=== PATIENT | female | born 1975 | race Caucasian/White ===

== ENCOUNTER 2018-07-25 02:10 | Day surgery (SDC) | payer OTHER ==
--- OUTSIDE RECORDS SUMMARY | 2018-07-25 02:21 | XMS REPORT | Continuity of Care Document ---
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 Payers Type Date Identification Numbers Payment Provider Subscriber Policy Number: [id number] [employer] Danika Domínguez PayID: [id number] [address] [place] [address] Advance Directives Description No Information Available Problems Description No Information Family History Description No Information Available Social History Type Date Description Comments Sex Unknown Allergies, Adverse Reactions, Alerts Description No Information Medications Description No Information Immunizations Description No Information Available Vital Signs Description No Information Available Results Description No Information Available Procedures Description No Information Available Encounters Description No Information Available Plan of Treatment Future Appointment(s):08/25/2018 11:30 am - Mohini Feng MD at [facility] Fwclrgwite34/18/2019 - Mohini Feng, MDR80.9 Proteinuria, [id number] Chronic kidney disease, unspecifiedNew Xrays:CT Abd/Pel W/O [id number], Ordered: US Renal Complete, Ordered: 07/01/18D68.62 Lupus anticoagulant syndromeNew Labs:Rheumatoid Factor, Ordered: 07/01/18Erythrocyte Sed Rate, Ordered: 07/01/18
[2018-07-25] MEDS ORDERED: NS 0.9% 1000 ML** 1,000 ML IV ONE (02:23)
[2018-07-25] MEDS ORDERED: fentaNYL* 50 MCG/ML 2 ML VIAL (100 MCG VIAL) IV SLOW PU ONE (02:24)
[2018-07-25] MEDS ORDERED: Metoclopramide IV* 5 MG/ML 2 ML VIAL IV SLOW PU ONE (02:24)
--- NOTE | 2018-07-25 02:30 | ED ---
Abdominal Pain/Female - HPI Summary HPI Summary: This patient is a 42 year old F presenting to [facility] with a chief complaint of constant RUQ abd pain since 23:00. The patient rates the pain 10/10 in severity. Symptoms aggravated by nothing. Symptoms alleviated by nothing. Patient denies vomiting. Patient notes that she took Tylenol at 21:30 but it did not alleviate her symptoms. Pt has hx of nephrostomy tube surgical placement and removal. - History of Current Complaint Chief Complaint: EDAbdPain Stated Complaint: ABD PAIN Time Seen by Provider: 07/25/18 02:20 Hx Obtained From: Patient Onset/Duration: Sudden Onset, Lasting Hours, Still Present Timing: Constant Severity Initially: Severe Severity Currently: Severe Pain Intensity: 10 Pain Scale Used: 0-10 Numeric Location: Discrete At: RUQ Radiates: No Aggravating Factor(s): Nothing Alleviating Factor(s): Nothing Associated Signs and Symptoms: Negative: Vomiting Allergies/Adverse Reactions: Allergies Allergy/AdvReac Type Severity Reaction Status Date / Time erythromycin base Allergy Unknown Verified 07/25/18 02:25 Reaction Details Home Medications: Home Medications Albuterol inh POWDER (NF) [Proair Respiclick] 1 puff INH Q4H PRN 07/25/18 [ History Confirmed 07/25/18] Hydrocodone/Acetaminophen [Hydrocodone-Acetamin 5-300 mg] 1 tab PO Q6H PRN 07/25 [History Confirmed 07/25/18] PMH/Surg Hx/FS Hx/Imm Hx Endocrine/Hematology History: Denies: Hx Diabetes Opthamlomology History: Denies: Hx Legally Blind EENT History: Denies: Hx Deafness - Surgical History Surgery Procedure, Year, and Place: right nephrostomy tube, removed Infectious Disease History: No Infectious Disease History: Denies: Traveled Outside the [place] in Last 30 Days - Family History Known Family History: Negative: Diabetes - Social History Lives: With Family Hx Tobacco Use: No Review of Systems Negative: Fever Negative: Epistaxis Negative: Chest Pain Negative: Cough Positive: Abdominal Pain - RUQ. Negative: Vomiting All Other Systems Reviewed And Are Negative: Yes Physical Exam - Summary Physical Exam Summary: VITAL SIGNS: Reviewed. GENERAL: Patient is a well-developed and nourished FEMALE who is lying comfortable in the stretcher. Patient is not in any acute respiratory distress. HEAD AND FACE: No signs of trauma. No ecchymosis, hematomas or skull depressions. No sinus tenderness. EYES: PERRLA, EOMI x 2, No injected conjunctiva, no nystagmus. EARS: Hearing grossly intact. Ear canals and tympanic membranes are within normal limits. MOUTH: Oropharynx within normal limits. NECK: Supple, trachea is midline, no adenopathy, no JVD, no carotid bruit, no c- spine tenderness, neck with full ROM. CHEST: Symmetric, no tenderness at palpation LUNGS: Clear to auscultation bilaterally. No wheezing or crackles. CVS: Regular rate and rhythm, S1 and S2 present, no murmurs or gallops appreciated. ABDOMEN: Soft, RUQ tenderness. No signs of distention. No rebound no guarding, and no masses palpated. Bowel sounds are normal. EXTREMITIES: FROM in all major joints, no edema, no cyanosis or clubbing. NEURO: Alert and oriented x 3. No acute neurological deficits. Speech is normal and follows commands. SKIN: Dry and warm Triage Information Reviewed: Yes Vital Signs On Initial Exam: Initial Vitals Temp Pulse Resp BP Pulse Ox 98.2 F 79 24 00/00 100 07/25/18 02:11 07/25/18 02:11 07/25/18 02:11 07/25/18 02:11 07/25/18 02:11 Vital Signs Reviewed: Yes Diagnostics - Vital Signs Vital Signs Temp Pulse Resp BP Pulse Ox 07/25/18 02:11 98.2 F 79 24 00/00 100 - Laboratory Result Diagrams: 07/25/18 02:38 07/25/18 02:38 Lab Statement: Any lab studies that have been ordered have been reviewed, and results considered in the medical decision making process. - CT CT Abd/Pelvis CT Interpretation Completed By: Radiologist Summary of CT Findings: IMPRESSION: 1. Cholelithiasis which is similar to the prior study of 06/09/2018. The. gallbladder is slightly more distended measuring 4.0 cm. 2[address] Otherwise negative CT abdomen/pelvis. Dr. Gresham has reviewed this report. Re-Evaluation - Re-Evaluation 1st re-eval Re-Evaluation Time: 04:51 Change: Unchanged Comment: Patient says she is still in pain Abdominal Pain Fem Course/Dx - Course Course Of Treatment: This patient is a 42 year old F presenting to [facility] with a chief complaint of constant RUQ abd pain since 23:00. CT abd/pelvis reveals, per radiologist, 1. Cholelithiasis which is similar to the prior study of 2017. The gallbladder is slightly more distended measuring 4.[address] cm[address] Otherwise negative [address] abdomen/pelvis. ED physician has reviewed this radiology report. Test results with no significant abnormalities. In the ED course the patient was given fentanyl, morphine, IV fluids, and Reglan.The patient has received multiple doses of analgesics and her pain is still poorly controlled. We discussed patient care with Dr. Ceja and he agreed to come see the patient in the ED. Dx cholelithiasis. The patient will be signed out to Dr. Sanabria upon provider shift change pending consult and disposition. - Diagnoses Provider Diagnoses: Cholelithiasis - Provider Notifications Discussed Care Of Patient With: Giovanni Ceja Time Discussed With Above Provider: 05:58 Instructed by Provider To: MD Will See In ED Discharge - Sign-Out/Discharge Documenting (check all that apply): Sign-Out Patient - pending consult and disposition Signing out patient TO: Ridge Sanabria Patient Received Moderate/Deep Sedation with Procedure: No - Discharge Plan Condition: Stable Referrals: Rohini Love MD [Primary Care Provider] - - Attestation Statements Document Initiated by Scribe: Yes Documenting Scribe: Lizzette Tse Provider For Whom Scribe is Documenting (Include Credential): Prachi Gresham MD Scribe Attestation: Lizzette Queen, scribed for Prachi Gresham MD on 07/25/18 at 0612. Status of Scribe Document: Ready
[2018-07-25 02:45] LABS: ABS Basophils 0.1 10^3/ul (0-0.2); ABS Eosinophils 0.3 10^3/ul (0-0.6); ABS Lymphocytes 1.8 10^3/ul (1.0-4.8); ABS Monocytes 0.5 10^3/ul (0-0.8); ABS Neutrophils 6.1 10^3/ul (1.5-7.7); ABS Nucleated RBC 0 10^3/ul; Eosinophil % 3.7 %; Hematocrit 39 % (35-47); Lymphocyte % 20.4 %; Mean Corpuscular HGB Conc 33 g/dl (31-36); Mean Corpuscular Hemoglobin 29 pg (27-31); Mean Corpuscular Volume 87 fL (80-97); Mean Platelet Volume 9.8 fL (7.4-10.4); Nucleated Red Blood Cells % 0; Platelet Count 202 10^3/ul (150-450); Red Blood Count 4.54 10^6/ul (4.00-5.40); Red Cell Distribution Width 13 % (10.5-15); White Blood Count 8.9 10^3/ul (3.5-10.8)
[2018-07-25 02:53] LABS: INR 0.91 (0.77-1.02)
[2018-07-25 03:02] LABS: ALT 26 U/L (7-52); AST 48 U/L (13-39); Albumin 4.6 g/dL (3.2-5.2); Albumin/Globulin Ratio 1.9 (1-3); Alkaline Phosphatase 83 U/L (34-104); Amylase 37 U/L (29-103); Anion Gap 4 mmol/L (2-11); BUN/Creatinine Ratio 26.5 (8-20); Blood Urea Nitrogen 18 mg/dL (6-24); C Reactive Protein 6.53 mg/L (<8.01); CO2 Carbon Dioxide 26 mmol/L (22-32); Calcium 9.7 mg/dL (8.6-10.3); Chloride 105 mmol/L (101-111); EGFR African American 114.8 (>60); EGFR Non-African American 94.9 (>60); Globulin 2.4 g/dL (2-4); Glucose 116 mg/dL (70-100); Potassium 3.6 mmol/L (3.5-5.0); Sodium 135 mmol/L (135-145)
[2018-07-25 03:08] LABS: HCG Pregnancy < 0.60 mIU/mL
[2018-07-25] MEDS ORDERED: Iohexol 300* (CONTRAST) 10 ML SDV IV ONE (03:29)
[2018-07-25] MEDS ORDERED: Ketorolac INJ* 30 MG/ML 1 ML VIAL IV PUSH ONE (04:26)
[2018-07-25 04:35] LABS: Urine Appearance Clear; Urine Bilirubin Negative (Negative); Urine Blood Negative (Negative); Urine Color Straw; Urine Glucose Negative (Negative); Urine Ketones Negative (Negative); Urine Nitrite Negative (Negative); Urine Protein Negative (Negative); Urine Specific Gravity 1.024 (1.010-1.030); Urine Urobilinogen Negative (Negative)
[2018-07-25] MEDS ORDERED: Morphine VIAL* 10 MG/ML 1 ML VIAL IV ONE (04:52)
--- NOTE | 2018-07-25 07:21 | ED ---
Progress - Progress Note Progress Note: This pt was signed out by Dr. Gresham at shift change, pending disposition, awaiting surgery consult. Re-Evaluation - Re-Evaluation 1st re-eval Re-Evaluation Time: 07:43 Comment: Dr. Ceja, surgeon, at bedside. Course/Dx - Course Course Of Treatment: Pt was signed out by Dr. Gresham at shift change pending surgery consult. CT abdomen/pelvis shows 1. Cholelithiasis which is similar to the prior study of 06/09/2018. The. gallbladder is slightly more distended measuring 4.0 cm[address] 2[address] Otherwise negative CT abdomen/pelvis. Pt was evaluated by Dr. Ceja, surgeon, in the ED. Dr. Ceja reports pt will be admitted to surgery. - Diagnoses Provider Diagnoses: Cholelithiasis Discharge - Sign-Out/Discharge Documenting (check all that apply): Patient Departure - Admit to surgery, Receiving Sign-Out Receiving patient FROM: Prachi Gresham All imaging exams completed and their final reports reviewed: Yes Patient Received Moderate/Deep Sedation with Procedure: No - Discharge Plan Condition: Stable Disposition: ADMITTED TO [facility] - Attestation Statements Document Initiated by Scribe: Yes Documenting Scribe: Josey Sheets Provider For Whom Scribe is Documenting (Include Credential): Ridge Sanabria MD Scribe Attestation: Josey Queen, scribed for Ridge Sanabria MD on 07/25/18 at 1023. Status of Scribe Document: Ready
[2018-07-25] MEDS ORDERED: Famotidine IV* 10 MG/ML 2 ML (20 mg) IV ONE (08:20)
[2018-07-25] MEDS ORDERED: Ondansetron INJ* 2 MG/ML VIAL ONE (08:20)
[2018-07-25] MEDS ORDERED: Dexamethasone IV* 4 MG/ML 1 ML (4 MG) IV SLOW PU ONE (08:20)
[2018-07-25] MEDS ORDERED: Buffered Lidocaine 1% SYRIN* 1 ML/SYRINGE INTRADERM ONE (08:20)
[2018-07-25] MEDS: Lactated Ringers 1000 ML Bag* 1,000 ML IV SCH ×2 (09:09→10:03)
[2018-07-25] MEDS ORDERED: Morphine VIAL* 4 MG/ML VIAL (1 ml vial) IV PRN (09:49)
[2018-07-25] MEDS ORDERED: DiMENhydriNATE IV* 50 MG/ML VIAL IV PUSH PRN (09:49)
[2018-07-25] MEDS ORDERED: oxyCODONE/Acetamin 5/325 MG* TAB PO PRN (09:49)
[2018-07-25] MEDS ORDERED: Naloxone* 0.4 MG/ML 1 ML VIAL IV PRN (09:49)
[2018-07-25] MEDS ORDERED: PROCHLORPERAZINE INJ 5 MG/ML 2 ML VIAL IV PRN (09:49)
[2018-07-25] MEDS ORDERED: fentaNYL* 50 MCG/ML 2 ML VIAL (100 MCG VIAL) IV PRN (09:49)
[2018-07-25] MEDS ORDERED: Famotidine IV* 10 MG/ML 2 ML (20 mg) ONE (10:00)
[2018-07-25] MEDS ORDERED: Dexamethasone IV* 4 MG/ML 1 ML (4 MG) ONE (10:00)
[2018-07-25] MEDS ORDERED: ceFAZolin 2 GM PREMIX in ORs 2 GM/50 ML BAG IVPB ONE (10:00)
[2018-07-25] MEDS ORDERED: Ondansetron ODT TAB* 4 MG ONE (10:00)
[2018-07-25] MEDS ORDERED: Atracurium* 10 MG/ML 10 ML VIAL ONE (10:05)
[2018-07-25] MEDS ORDERED: Midazolam* 1 MG/ML 5 ML VIAL (5 MG) ONE (10:05)
[2018-07-25] MEDS ORDERED: fentaNYL* 50 MCG/ML 2 ML VIAL (100 MCG VIAL) ONE (10:05)
--- NOTE | 2018-07-25 10:54 | HP ---
AMENDED REPORT NOW INCLUDES COSIGNER DESIGNATION - ESIGNED BEFORE ADJUSTMENTS CC: Dr. Chávez * PRIORITY PREOPERATIVE HISTORY AND PHYSICAL: This patient is for Dr. Terry Fernández. DATE OF ADMISSION: 07/25/18 This patient was seen in the [facility] Emergency Department on 07/25/18. ATTENDING PROVIDER: Dr. Fernández * (DICTATED BY ELROY SMALL, EMBRYOLOGY PROFESSOR) CHIEF COMPLAINT: Right upper quadrant abdominal pain. HISTORY OF PRESENT ILLNESS: The patient is a 42-year-old female, who was awakened at 1 o'clock this morning with severe right upper quadrant subcostal abdominal pain, that she rated 10/10 in severity. She felt sweaty and cold and nauseated and had some dry heaving, but did not vomit. She denies any dark urine and she had a soft brown bowel movement last evening. She did eat a turkey sandwich and some potato chips around 7 p.m. last night. Despite multiple doses of analgesics in the emergency department her pain persisted. She had a previous episode of dull right upper quadrant abdominal pain in May 2018, and had a CAT scan at that time that did show a gallstone. CAT scan of the abdomen and pelvis done in the emergency room today confirmed a large gallstone and a slightly distended gallbladder. Her white blood cell count was normal at 8.9; total bilirubin 0.5, lipase was within normal limits, AST was 48, and test was negative. 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 She has multiple food allergies; migraine headaches. 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 OB HISTORY: 2, miscarriage 11. Last menstrual period 07/04/18. test negative today. CURRENT MEDICATIONS: 1. Multivitamins and vitamin C. 2. She did use albuterol inhaler a few times last fall, but none since. ALLERGIES: ERYTHROMYCIN caused anaphylaxis and cardiac arrest 22 years ago; LATEX causes hives and she has multiple food allergies. FAMILY HISTORY: She was raised by her grandparents. She is not in touch with her parents, but she knows that her mother has a history of brain aneurysms. SOCIAL HISTORY: She is and has 2 children. 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 REVIEW OF SYSTEMS: Constitutional: She has felt chills and diaphoretic. No excessive fatigue or weight loss. Endocrine: No diabetes or thyroid disease. Cardiovascular: No current chest pain or palpitations. Respiratory: Previous history of sinusitis and bronchitis in the fall of 2018, none current. Gastrointestinal: As described in history of present illness. Genitourinary: Multiple right nephrostomies 14 years ago. No history of kidney stones. Musculoskeletal: She reports joint and back pain secondary to weight gain. Neurologic: No history of seizures or concussions. No bleeding tendencies. No history of blood transfusions. General: No previous anesthesia complications. No history of deep vein thrombosis or pulmonary embolism. She last ate solid food at 7 p.m. last night and last fluids were sips of water at 1 :30 this morning. PHYSICAL EXAMINATION GENERAL SURVEY: The patient is a 42-year-old overweight female, in no acute distress. VITAL SIGNS: Height 5 feet 5 inches, weight 205 pounds, body mass index 34. Blood pressure as recorded by nursing, pulse 80 and regular, respiratory rate 20 , temperature 98.2 tympanic, O2 saturation 100% on room air. SKIN: Warm, dry, intact. No santiago jaundice. HEENT: Benign. No scleral icterus. NECK: No cervical lymphadenopathy. BACK: No CVA tenderness. LUNGS: Breath sounds bilaterally clear and equal. HEART: Regular rate and rhythm. No murmurs or rubs appreciated. ABDOMEN: Quiet, soft, nondistended; tender in the subcostal right upper quadrant and epigastric regions. No obvious masses or organomegaly. No guarding. PELVIC: Exam deferred. RECTAL: Exam deferred. EXTREMITIES: Warm without edema or skin ulceration. NEUROLOGIC: Alert and oriented x3. Full range of motion. IMPRESSION: Symptomatic cholelithiasis. PLAN/RECOMMENDATIONS: To the operating room today per Dr. Fernández for laparoscopic cholecystectomy. The nature of the surgical procedure, the rationale, and the typical postoperative recovery was discussed. The patient's questions were answered and verbal consent was obtained. TIME SPENT: Seventy five minutes with greater than 50% in [id number], history taking, and patient counseling and coordination of care. ELROY SMALL NP [id number]/[facility] #: [id number] ALEKS
[2018-07-25] MEDS ORDERED: Bupivacaine 0.25% W/EPI* 10 ML SDV ONE (10:56)
[2018-07-25] MEDS ORDERED: Morphine VIAL* 10 MG/ML 1 ML VIAL ONE (11:23)
[2018-07-25] MEDS ORDERED: Propofol* 10 MG/ML 20 ML BTL ONE (12:11)
[2018-07-25] MEDS ORDERED: Ketorolac INJ* 30 MG/ML 1 ML VIAL ONE (12:12)
[2018-07-25] MEDS ORDERED: Glycopyrrolate IV* 0.2 MG/ML 1 ML VIAL ONE (12:12)
[2018-07-25] MEDS ORDERED: PROCHLORPERAZINE INJ 5 MG/ML 2 ML VIAL ONE (12:12)
[2018-07-25] MEDS ORDERED: Lidocaine 2% PF * 5 ML VIAL ONE (12:12)
[2018-07-25] MEDS ORDERED: Neostigmine Methylsulfate* 1 MG/ML 10 ML VIAL (1 mg/ml) ONE (12:12)
[2018-07-25 13:47] VITALS: BP 109/67
[2018-07-25] MEDS ORDERED: oxyCODONE/Acetamin 5/325 MG* TAB ONE (14:10)
--- NOTE | 2018-07-25 20:59 | OP ---
CC: Dr. Rohini Love, [facility] * DATE OF OPERATION: 07/25/18 - SDS DATE OF : 75 SURGEON: Terry Fernández MD PRODUCT HANDLER: Sugar Beauchamp NP ANESTHESIOLOGIST: Dr. Cadena. ANESTHESIA: General with local. PRE-OP DIAGNOSES: 1. Right upper quadrant abdominal pain. 2. Cholelithiasis. POST-OP DIAGNOSES: 1. Right upper quadrant abdominal pain. 2. Cholelithiasis. OPERATIVE PROCEDURE: Laparoscopic cholecystectomy. BRIEF HISTORY: Mrs. Danika Domínguez is a 42-year-old woman, who presented to the emergency room with 12 hours of severe epigastric right upper quadrant abdominal pain, radiating to her back. She had no gallstones. Laboratory workup was unremarkable. She underwent a CT scan which showed a large 2 cm gallstone in the neck of the gallbladder without findings consistent with acute cholecystitis. Due to the persistent pain, the findings on CT scan that was felt that her pain was due to the impacted gallstone and it was recommended that she undergo a laparoscopic cholecystectomy. After discussing the procedure with the patient and her including the risks, benefits and alternatives, she has elected to proceed with a cholecystectomy. The procedure was discussed with her, and the risks of, but not limited to, bleeding, infection, intraabdominal abscess formation, injury to peritoneal and retroperitoneal structures, common bile duct injury requiring further reconstruction, bile leak, abscess formation, possibility of an open procedure and the risks of anesthesia were all explained. ESTIMATED BLOOD LOSS: Minimal. WOUND CLASSIFICATION: II. COMPLICATIONS: None. DRAINS: None. SPECIMENS: Gallbladder. DESCRIPTION OF PROCEDURE: Written informed consent was obtained, the abdomen was marked with indelible ink and preoperative antibiotics were administered. The patient was taken to the operating room and placed in the supine position. Sequential compression devices and a warming blanket were applied. General anesthesia was administered. The abdomen was prepped and draped in the usual sterile fashion. A time-out verification was completed. Initially, a small transverse incision was made just above the umbilicus at the midline, the peritoneal cavity was entered under direct vision. The abdomen was insufflated to 15 mmHg and under direct vision, an 11 mm epigastric port was placed and two 5 mm ports were placed on the right side of the abdominal wall. Then, the right upper quadrant was evaluated. There were some omental adhesions to the anterior abdominal wall as well as a gallbladder. These were taken down using a sharp dissection. Liver appeared to be unremarkable. Further omentum was taken down from the body and infundibulum area of the gallbladder and this was elevated up over the liver bed. The gallbladder showed no signs of acute or significant chronic inflammatory change; and with care, took the peritoneum along the medial and lateral aspects of the gallbladder down to identify the cystic artery and cystic duct as I entered into the gallbladder. The cystic duct did not appear to be dilated and was of expected caliber. I took a significant portion of the inferior part of the gallbladder off the liver bed using a critical view technique to assure myself of these 2 structures. The cystic artery and duct were then doubly clipped and divided. The gallbladder was removed from the liver bed using cautery and placed in an EndoCatch bag and brought up to the umbilical incision. The liver bed was evaluated and hemostasis was assured. There was no evidence of bile leak. All ports were removed under direct vision of the camera. The umbilical fascia was closed with interrupted 0 Vicryl suture. The skin at all 4 incisions was approximated with subcuticular 4-0 Vicryl suture. Steri-Strips were applied. The patient tolerated the procedure well and was taken to the recovery room in stable condition. [id number]/[facility] #: [id number] ALEKS
== END 2018-07-25 14:33 | disposition home or self-care (01) ==
LOC: ED 02:10 → OR 08:15
PROVIDERS: ATTEND Surgery
DX: K80.10 Calculus of gallbladder with chronic cholecystitis without obstruction (principal); R10.11 Right upper quadrant pain
CPT/HCPCS: 36415; 74177; 80053; 81003; 82150; 83690; 83735; 84702; 85025; 85610; 86140; 88304; 96374; 96375; 99285; A9270-GY; J0690; J0780; J1100; J1885; J2250; J2270; J2704; J2710; J2765; J3010; Q9967